=== PATIENT | male | born 1990 | race Two or more races ===

== ENCOUNTER 2018-05-30 08:39 | Emergency (ER) | payer MEDICAID ==
[~2018-05-30] VITALS: Ht 172.7 cm; Wt 104.3 kg
[2018-05-30 08:49] VITALS: BP 132/65
[2018-05-30] MEDS ORDERED: ACETAMINOPHEN 325 MG TAB PO ONE (09:00)
[2018-05-30] MEDS ORDERED: LIDOCAINE VISCOUS 2% 15ML UD PO ONE (09:30)
[2018-05-30] MEDS ORDERED: methylPREDNISolone SOD SUCC 125 MG/2 ML VL IM ONE (09:30)
[2018-05-30] MEDS ORDERED: cefTRIAXone SOD 1,000 MG VL IM ONE (09:30)
[2018-05-30] MEDS ORDERED: IBUPROFEN 800 MG TAB PO ONE (10:15)
== END 2018-05-30 10:09 | disposition home or self-care (01) ==
LOC: ER 08:39
DX: J03.00 Acute streptococcal tonsillitis, unspecified (principal)
CPT/HCPCS: 71046; 93005; 96372; 99284; J0696; J2930

== ENCOUNTER → 2018-06-14 | Outpatient (CLI) | payer MEDICAID | END | disposition home or self-care (01) | LOC: LAB 14:48 | PROVIDERS: ATTEND Physician Assistant | DX: Z11.3 Encounter for screening for infections with a predominantly sexual mode of transmission (principal); Z72.89 Other problems related to lifestyle | CPT/HCPCS: 36415; 86592; 86703; 86803 ==

== ENCOUNTER 2025-08-07 17:04 | Emergency (ER) | payer MEDICAID ==
[~2025-08-07] VITALS: Ht 172.7 cm; Wt 97.7 kg
[2025-08-07 17:56] LABS: Hematocrit 44.7 % (41.0-53.0); Hemoglobin 15.2 g/dL (13.5-17.5); Mean Corpuscular Hemoglobin 29.9 pg (28.0-32.0); Mean Corpuscular Volume 88.0 fL (80.0-100.0); Nucleated Red Blood Cells % 0.0 %
--- NOTE | 2025-08-07 18:10 | DVH ---
CHEST RADIOGRAPH INDICATION: cough TECHNIQUE: Single frontal view of the chest was obtained COMPARISON: None FINDINGS: Lines and Tubes: None Lungs: Findings suggest patchy airspace disease in the right infrahilar region. Left lung field appears clear. Pleura: No effusion. No pneumothorax. Cardiomediastinal contours: Unremarkable Bones: No acute osseous abnormality. IMPRESSION: 1. Airspace disease RIGHT infrahilar region.
[2025-08-07 18:16] LABS: Alanine Aminotransferase 30 U/L (7-40); Albumin 4.7 g/dL (3.2-4.8); Alkaline Phosphatase 53 U/L (46-116); Anion Gap 8 (5-15); BUN/Creatinine Ratio 8.3 (10.0-20.0); Bilirubin, Total 0.4 mg/dL (0.2-1.0); Calcium 9.7 mg/dL (8.7-10.4); Carbon Dioxide 29 mmol/L (20-31); Chloride 104 mmol/L (98-107); Glucose 83 mg/dL (74-106); Potassium 4.2 mmol/L (3.5-5.1); Sodium 141 mmol/L (136-145); Total Protein 8.0 g/dL (5.7-8.2)
[2025-08-07 18:17] LABS: Blood Urea Nitrogen 8 mg/dL (9-23)
--- NOTE | 2025-08-07 18:21 | DVH ---
CLINICAL HISTORY: pace TECHNIQUE: Helical imaging carried out from skull base to vertex without intravenous contrast. This exam was performed according to our departmental dose optimization program. Up-to-date CT equipment and radiation dose reduction techniques are utilized as appropriate. CTDIVol: 63.09 mGy DLP: 1132.78 mGy-cm WID: COMPARISON: None FINDINGS: CSF density mass effect in the anterior left middle cranial fossa measuring 1.6 cm on series 2, image 19 likely arachnoid cyst. Benign CSF prominence of the [id number]-right posterior fossa likely arachnoid cyst. The ventricles and subarachnoid spaces are normal in size and configuration. There is no midline shift or mass effect. The griggs white matter interfaces are maintained. The basal cisterns are patent. There is no evidence of acute intracranial hemorrhage or extra-axial fluid collection. The mastoid air cells and visualized paranasal sinuses are well-aerated. IMPRESSION: 1. No acute intracranial abnormality.
[2025-08-07] MEDS ORDERED: AUG875T PO (20:26)
[2025-08-07] MEDS ORDERED: ALBU108A5 IN (20:26)
--- NOTE | 2025-08-07 20:27 | ED.PDOC ---
History of Present Illness HPI Comments 35-year-old male complaining of brain fog. States 10 days ago he was feeling sick with cold symptoms. He took a DayQuil time solution that had acetaminophen. States he has had a reaction to acetaminophen in the past. Says he started feeling chest pain palpitations and had a hard time with concentration. States the cough started to improve but he still been having the mild brain fog. States he has not taken any medications over the last nine days because he wanted to make sure everything is out of the system. Patient denies any fever or chills currently no nausea no vomiting. Nothing makes it better, nothing makes it worse. Chief Complaint: General Weakness Time Seen by MD: 17:09 Primary Care Provider: DENIES PCP Allergies: Coded Allergies: Acetaminophen (Verified Allergy, Unknown, 08/07/25) No Known Drug Allergy (Verified Allergy, Unknown, 05/30/18) Mode of Arrival: Ambulatory Past Medical History PAST MEDICAL HISTORY: Denies Surgical History: Denies all surgeries Constitutional: reports: chills, fatigue; denies: diaphoresis, fever, malaise, sweats, weakness, others EENTM: denies: blurred vision, double vision, ear bleeding, ear discharge, ear drainage, ear pain, ear ringing, eye pain, eye redness, hearing loss, mouth pain, mouth swelling, nasal discharge, nose bleeding, nose congestion, nose pain, photophobia, tearing, throat pain, throat swelling, voice changes, others Respiratory: reports: cough; denies: hemoptysis, orthopnea, SOB at rest, shortness of breath, SOB with excertion, stridor, wheezing, others Cardiovascular: reports: chest pain; denies: dizzy spells, diaphoresis, Dyspnea on exertion, edema, irregular heart beat, left arm pain, lightheadedness, palpitations, PND, syncope, others Gastrointestinal: denies: abdomen distended, abdominal pain, blood streaked bowels, constipated, diarrhea, dysphagia, difficulty swallowing, hematemesis, melena, nausea, poor appetite, poor fluid intake, rectal bleeding, rectal pain, vomiting, others Genitourinary: denies: burning, dysuria, flank pain, frequency, hematuria, incontinence, penile discharge, penile sore, pain, testicle pain, testicle swelling, urgency, others Neurological: denies: dizziness, fainting, headache, left sided numbness, left sided weakness, numbness, paresthesia, pre-existing deficit, right sided numbness, right sided weakness, seizure, speech problems, tingling, tremors, weakness, others Musculoskeletal: denies: back pain, gout, joint pain, joint swelling, muscle pain, muscle stiffness, neck pain, others Integumetry: denies: bruises, change in color, change in hair/nails, dryness, laceration, lesions, lumps, rash, wounds, others Allergic/Immunocompromised: denies: Difficulty Healing, Frequent Infections, Hives, Itching, others Hematologic/Lymphatic: denies: anemia, blood clots, easy bleeding, easy bruising, swollen glands, others Physical Exam General Appearance: No Apparent Distress, Normal HEENT: Normal ENT Inspection, Pharynx Normal, TMs Normal Neck: Full Range of Motion, Non-Tender, Normal, Normal Inspection Respiratory: Chest Non-Tender, Lungs Clear, No Accessory Muscle Use, No Respiratory Distress, Normal Breath Sounds Cardiovascular: No Edema, No JVD, No Murmur, No Gallop, Normal Peripheral Pulses, Regular Rate/Rhythm Breast Exam: Deferred Gastrointestinal: No Organomegaly, Non Tender, No Pulsatile Mass, Normal Bowel Sounds, Soft Genitalia: Deferred Pelvic: Deferred Rectal: Deferred Extremities: No calf tenderness, Normal capillary refill, Normal inspection, Normal range of motion, Non-tender, No pedal edema Musculoskeletal : Apperance: Normal Neurologic: Alert, cardiac surgeon II-XII nml as Tested, No Motor Deficits, Normal Affect, Normal Mood, No Sensory Deficits Cerebellar Function: Normal Reflexes: Normal Skin: Dry, Normal Color, Warm Lymphatic: No Adenopathy Was a procedure done? Was a procedure done?: No Differential Dx Considerations may include: , influenza, COVID-19, cold, cough X-Ray, Labs, Meds, VS Vital Signs Date Time Temp Pulse Resp B/P (MAP) Pulse Ox O2 Delivery O2 Flow Rate FiO2 08/07/25 19:45 98.2 55 19 123/71 (88) 99 98.2 08/07/25 17:13 64 08/07/25 17:07 98.2 62 16 135/83 99 98.2 Lab Test 08/07/25 17:37 Range/Units White Blood Count 10.2 4.4-10.8 10^3/uL Red Blood Count 5.08 4.5-5.90 10^6/uL Hemoglobin 15.2 13.5-17.5 g/dL Hematocrit 44.7 41.0-53.0 % Mean Corpuscular Volume 88.0 80.0-100.0 fL Mean Corpuscular Hemoglobin 29.9 28.0-32.0 pg Mean Corpuscular Hemoglobin Concent 33.9 32.0-36.0 g/dL Red Cell Distribution Width 13.5 11.8-14.3 % Platelet Count 380 140-450 10^3/uL Mean Platelet Volume 7.2 6.9-10.8 fL Neutrophils (%) (Auto) 69.4 37.0-80.0 % Lymphocytes (%) (Auto) 23.9 10.0-50.0 % Monocytes (%) (Auto) 5.6 0.0-12.0 % Eosinophils (%) (Auto) 0.9 0.0-7.0 % Basophils (%) (Auto) 0.2 0.0-2.0 % Neutrophils # (Auto) 7.1 1.6-8.6 10 ^3/uL Lymphocytes # (Auto) 2.4 0.4-5.4 10 ^3/uL Monocytes # (Auto) 0.6 0-1.3 10 ^3/uL Eosinophils # (Auto) 0.1 0-0.8 10 ^3/uL Basophils # (Auto) 0 0-0.2 10 ^3/uL Nucleated Red Blood Cells 0.0 % Sodium Level 141 136-145 mmol/L Potassium Level 4.2 3.5-5.1 mmol/L Chloride Level 104 98-107 mmol/L Carbon Dioxide Level 29 20-31 mmol/L Anion Gap 8 5-15 Blood Urea Nitrogen 8 L 9-23 mg/dL Creatinine 0.96 0.700-1.30 mg/dL Glomerular Filtration Rate Calc 106 >90 mL/min BUN/Creatinine Ratio 8.3 L 10.0-20.0 Serum Glucose 83 74-106 mg/dL Calcium Level 9.7 8.7-10.4 mg/dL Total Bilirubin 0.4 0.2-1.0 mg/dL Aspartate Amino Transferase (AST) 21 13-40 U/L Alanine Aminotransferase (ALT) 30 7-40 U/L Alkaline Phosphatase 53 46-116 U/L Total Protein 8.0 5.7-8.2 g/dL Albumin 4.7 3.2-4.8 g/dL X-Ray, Labs, Meds, VS Comment Imaging was reviewed by this provider, there is trace of the right side/lobes Pending radiology review Labs were reviewed by this provider, no abnormalities Vital signs reviewed by this provider, clinically stable Time of 1ST Reevaluation: 20:27 Reevaluation 1ST: Improved Patient Education/Counseling: Diagnosis, Treatment, Prognosis, Need For Follow Up (Follow up with PCP in the next 2-3 days. Return to the emergency department if symptoms worsen) Family Education/Counseling: Diagnosis SEPSIS Sepsis Screen Date sepsis recognized/suspect: Aug 07, 2025 Time Sepsis recognized/suspect: 1708 Recent Procedure: No On Antibiotic Therapy: No Respiratory Rate >20: No Heart Rate >90: No Temp<36 C (96.8 F) or >38.3 C: No SBP <90 or MAP <65 mmHG: No New Acute Mental Status Change: No Is the patient on CPAP, BIPAP,: No Physician Orders Electrocardigram (08/07/25 17:18) Head Without Contrast (08/07/25 17:31) Urinalysis (08/07/25 17:31) Drug Screen (08/07/25 17:31) Chest Xray 1 View (08/07/25 17:31) Vital Signs Date Time Temp Pulse Resp B/P (MAP) Pulse Ox O2 Delivery O2 Flow Rate FiO2 08/07/25 19:45 98.2 55 19 123/71 (88) 99 98.2 08/07/25 17:13 64 08/07/25 17:07 98.2 62 16 135/83 99 98.2 Laboratory Tests Test 08/07/25 17:37 White Blood Count 10.2 10^3/uL (4.4-10.8) Departure 1 Departure Time of Disposition: 20:25 Impression: Primary Impression: Pneumonia Qualified Codes: J18.9 - Pneumonia, unspecified organism Disposition: HOME / SELF CARE / HOMELESS Condition: Stable e-Prescriptions Albuterol Sulfate (Albuterol Sulfate Hfa) 108 Mcg/Act Aer 108 MCG IN TID PRN, #1 AER Prov: ROLDAN*KATIE COMPUTER HELP DESK SPECIALIST 08/07/25 Amoxicillin & Pot Clavulanate (AUGMENTIN TABLET) 875 Mg Tb 875 MG PO BID for 7 Days, #14 TAB Prov: KATIE DAVILA 08/07/25 Discharged With: Self Critical Care Note Critical Care Time?: No Stability Stability form required: No Heart Score Heart Score: Heart Score Response (Comments) Value History N/A 0 EKG N/A 0 Age N/A 0 Risk Factors N/A 0 Troponin N/A 0 Total 0 KATIE DAVILA Aug 07, 2025 20:27
[2025-08-07 20:42] VITALS: BP 126/82; PULSE 90; RESP 18; TEMP 97.8; O2SAT 96
--- NOTE | 2025-08-11 12:11 | ECG ---
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
== END 2025-08-07 20:49 | disposition home or self-care (01) ==
LOC: ER 17:04
DX: J18.9 Pneumonia, unspecified organism (principal)
CPT/HCPCS: 36415; 70450; 71045; 80053; 82947; 85025; 93005